=== PATIENT | female | born 1945 | race Caucasian/White ===

== ENCOUNTER 2017-12-26 09:47 | Inpatient (IN) | payer MEDICARE ==
[~2017-12-26] VITALS: Ht 172.7 cm; Wt 89.1 kg
[~2017-12-26 09:47] MED LIST: ALBU6.7H IH; ASPI-1197 PO; HYDR12.530 PO; LISI10TA7 PO; OMEP10SU2 PO
[2017-12-26 11:09] LABS: BASOPHILS % (AUTO) 0.5 % (0.0-5.0); HEMATOCRIT 32.6 % (36-48); MEAN CORPUSCULAR HGB CONC 33.7 g/dL (32.0-36.0); MEAN CORPUSCULAR VOLUME 80.3 fL (79-99); NEUTROPHILS % (AUTO) 66.5 % (40.0-77.0); PLATELET COUNT (AUTO) 283 K/uL (130-400); RED BLOOD CELL COUNT(AUTO) 4.06 MIL/uL (4.00-5.50); RED CELL DISTRIBUTION WIDTH 15.3 % (11.0-15.5); WHITE BLOOD COUNT (AUTO) 6.4 K/uL (4.8-10.8)
[2017-12-26 11:18] LABS: CARBON DIOXIDE 29 mmol/L (21-32); CHLORIDE 98 mmol/L (101-111); GLOMERULAR FILTR. RATE CALC 58 mL/min (>60); GLUCOSE,RANDOM 107 mg/dL (70-105); POTASSIUM 4.1 mmol/L (3.5-5.1); SODIUM SERUM 135 mmol/L (136-145); UREA NITROGEN, BLOOD 12 mg/dL (7-18)
[2017-12-26 11:27] LABS: INR 0.95 (0.85-1.15)
[2017-12-26] MEDS ORDERED: METHYLPREDNISOLONE SOD SUCC 125MG/2ML VIAL ONE (11:31)
[2017-12-26 11:32] LABS: ALANINE AMINOTRANSFERASE 17 U/L (12-78); ALBUMIN 3.8 g/dL (3.5-5.0); ASPARTATE AMINOTRANSFERASE 17 U/L (10-37); BILIRUBIN,TOTAL 0.4 mg/dL (0.2-1.0); CREATINE KINASE MB < 0.5 ng/mL (0.5-3.6); CREATINE KINASE, TOTAL 58 U/L (21-232); TOTAL PROTEIN, SERUM 7.9 g/dL (6.0-8.3)
[2017-12-26] MEDS ORDERED: IPRATROPIUM/ALBUTEROL SULFATE 3 ML SOLUTION IH ONE (11:42)
[2017-12-26 11:54] LABS: B-TYPE NATRIURETIC PEPTIDE 63 pg/mL (0-100)
[2017-12-26] MEDS ORDERED: LEVOFLOXACIN 500 MG/D5W 100 ML 100 ML ONE (13:33)
[2017-12-26] MEDS: IPRATROPIUM/ALBUTEROL SULFATE 3 ML SOLUTION IH SCH ×2 (18:34→22:45)
[2017-12-26 19:05] VITALS: BP 175/76
[2017-12-26] MEDS: METHYLPREDNISOLONE SOD SUCC 125MG/2ML VIAL IVP SCH (21:11)
[2017-12-26] MEDS ORDERED: MONT10TA21 PO (23:02)
[2017-12-26] MEDS ORDERED: ALBUHFA IH (23:09)
[2017-12-26] MEDS ORDERED: OMEP20TA2 PO (23:09)
[2017-12-26] MEDS ORDERED: METO25TA6 PO (23:09)
[2017-12-26] MEDS ORDERED: SIMV20TA6 PO (23:09)
[2017-12-26] MEDS ORDERED: LISI1TAB9 PO (23:09)
[2017-12-26] MEDS ORDERED: ASPI-1026 PO (23:10)
[2017-12-27 00:23] VITALS: BP 168/78
[2017-12-27] MEDS ORDERED: ACETAMINOPHEN 325 MG TAB PO PRN (02:30)
[2017-12-27] MEDS ORDERED: HYDRALAZINE HCL 20 MG/ML VIAL IV PRN (02:30)
[2017-12-27] MEDS ORDERED: ONDANSETRON HCL 4 MG/2 ML VIAL IVP PRN (02:30)
[2017-12-27] MEDS: IPRATROPIUM/ALBUTEROL SULFATE 3 ML SOLUTION IH SCH ×6 (02:40→22:34)
[2017-12-27 04:00] VITALS: BP 154/81
[2017-12-27] MEDS: METHYLPREDNISOLONE SOD SUCC 125MG/2ML VIAL IVP SCH ×3 (04:51→21:34)
[2017-12-27 08:04] VITALS: BP 139/67
[2017-12-27] MEDS: ENOXAPARIN SODIUM 30 MG/0.3 ML SQ SCH (09:00)
[2017-12-27] MEDS: LEVOFLOXACIN 500 MG/D5W 100 ML 100 ML IV SCH (11:15)
[2017-12-27 11:16] VITALS: BP 156/75
[2017-12-27 16:45] VITALS: BP 133/59
[2017-12-27] MEDS: BUDESONIDE 0.5 MG/2 ML INH IH SCH (19:37)
[2017-12-27 19:50] VITALS: BP 145/69
[2017-12-27] MEDS ORDERED: MONTELUKAST SODIUM 10 MG TAB PO SCH (21:00)
[2017-12-27] MEDS ORDERED: ATORVASTATIN CALCIUM 10 MG TABLET PO SCH (21:00)
[2017-12-28] VITALS: BP 150/72
[2017-12-28] MEDS: IPRATROPIUM/ALBUTEROL SULFATE 3 ML SOLUTION IH SCH ×3 (01:51→10:24)
[2017-12-28 04:00] VITALS: BP 154/64
[2017-12-28 04:53] LABS: HEMATOCRIT 26.5 % (36-48); MEAN CORPUSCULAR HEMOGLOBIN 26.7 pg (27.0-33.0); MEAN CORPUSCULAR HGB CONC 33.8 g/dL (32.0-36.0); MEAN CORPUSCULAR VOLUME 78.8 fL (79-99); PLATELET COUNT (AUTO) 275 K/uL (130-400); RED BLOOD CELL COUNT(AUTO) 3.36 MIL/uL (4.00-5.50); RED CELL DISTRIBUTION WIDTH 15.1 % (11.0-15.5); WHITE BLOOD COUNT (AUTO) 18.5 K/uL (4.8-10.8)
[2017-12-28 05:04] LABS: ALBUMIN 3.3 g/dL (3.5-5.0); BILIRUBIN,TOTAL 0.2 mg/dL (0.2-1.0); CREATININE 1.2 mg/dL (0.5-1.5); POTASSIUM 3.7 mmol/L (3.5-5.1); TOTAL PROTEIN, SERUM 6.9 g/dL (6.0-8.3)
[2017-12-28] MEDS: BUDESONIDE 0.5 MG/2 ML INH IH SCH (07:12)
[2017-12-28] MEDS ORDERED: PANTOPRAZOLE SODIUM 40 MG TABLET.DR PO SCH (07:30)
[2017-12-28 07:45] VITALS: BP 110/63
[2017-12-28 08:16] VITALS: BP 124/59
[2017-12-28] MEDS ORDERED: ASPIRIN 325 MG TABLET PO SCH (09:00)
[2017-12-28] MEDS: AMLODIPINE BESYLATE 5 MG TAB PO SCH ×3 (09:00→11:59)
[2017-12-28] MEDS ORDERED: LISINOPRIL 10 MG TABLET PO SCH (09:00)
[2017-12-28] MEDS ORDERED: HYDROCHLOROTHIAZIDE 25 MG TABLET PO SCH (09:00)
[2017-12-28] MEDS: METHYLPREDNISOLONE SOD SUCC 125MG/2ML VIAL IVP SCH (09:35)
[2017-12-28] MEDS: ENOXAPARIN SODIUM 30 MG/0.3 ML SQ SCH (09:36)
[2017-12-28] MEDS: LEVOFLOXACIN 500 MG/D5W 100 ML 100 ML IV SCH (11:57)
[2017-12-28 12:00] VITALS: BP 174/77
[2017-12-28 13:15] VITALS: BP 136/67
[2017-12-28] MEDS ORDERED: AMLO5TAB4 PO (14:04)
[2017-12-28] MEDS ORDERED: PRED20TA3 PO (14:04)
[2017-12-28] MEDS ORDERED: LEVO500T2 PO (14:04)
[2017-12-28] MEDS ORDERED: BUDE0.5A3 IH (14:05)
== END 2017-12-28 14:55 | disposition home or self-care (01) | DRG 189 ==
LOC: EDH 09:47 → EDHIP 12:15 → 4BH 18:46
PROVIDERS: ADMIT Family Medicine; ATTEND Family Medicine
DX: J96.00 Acute respiratory failure, unspecified whether with hypoxia or hypercapnia (principal); J44.1 Chronic obstructive pulmonary disease with (acute) exacerbation; I35.0 Nonrheumatic aortic (valve) stenosis; J45.901 Unspecified asthma with (acute) exacerbation; E66.9 Obesity, unspecified; E78.5 Hyperlipidemia, unspecified; I10 Essential (primary) hypertension; I25.10 Atherosclerotic heart disease of native coronary artery without angina pectoris; Z87.891 Personal history of nicotine dependence; Z90.710 Acquired absence of both cervix and uterus; Z95.1 Presence of aortocoronary bypass graft; Z95.3 Presence of xenogenic heart valve; Z68.29 Body mass index [BMI] 29.0-29.9, adult
CPT/HCPCS: 36415; 71046; 80053; 82550; 82553; 83880; 84484; 85025; 85027; 85610; 85730; 87633; 93005; 93306; 94640; 94664; J1650; J1956; J2930

== ENCOUNTER 2019-01-29 17:55 | Inpatient (IN) | payer MEDICARE ==
[~2019-01-29] VITALS: Ht 171.4 cm; Wt 93.9 kg
[~2019-01-29 17:55] MED LIST changes: -ALBU6.7H IH; +ALBUHFA IH; +AMLO5TAB4 PO; +ASPI-1026 PO; -ASPI-1197 PO; +BUDE0.5A3 IH; -HYDR12.530 PO; +LEVO500T2 PO; -LISI10TA7 PO; +LISI1TAB9 PO; +MONT10TA21 PO; -OMEP10SU2 PO; +OMEP20TA2 PO; +PRED20TA3 PO; +SIMV20TA6 PO
[2019-01-29 18:47] LABS: BASOPHILS % (AUTO) 0.6 % (0.0-5.0); EOSINOPHILS % (AUTO) 4.3 % (0.0-8.0); LYMPHOCYTES % (AUTO) 19.8 % (21.0-51.0); MEAN CORPUSCULAR HEMOGLOBIN 21.3 pg (27.0-33.0); MEAN CORPUSCULAR HGB CONC 31.1 g/dL (32.0-36.0); MEAN CORPUSCULAR VOLUME 68.7 fL (79-99); MONOCYTES % (AUTO) 9.1 % (3.0-13.0); NEUTROPHILS % (AUTO) 66.2 % (40.0-77.0); NUCLEATED RED BLOOD CELLS 0.1 % (0.0-0.19); PLATELET COUNT (AUTO) 300 K/uL (130-400); RED BLOOD CELL COUNT(AUTO) 2.51 MIL/uL (4.00-5.50); RED CELL DISTRIBUTION WIDTH 18.2 % (11.0-15.5); WHITE BLOOD COUNT (AUTO) 6.4 K/uL (4.8-10.8)
[2019-01-29 18:59] LABS: HEMATOCRIT 17.2 % (36-48)
[2019-01-29 19:05] LABS: INR 0.92 (0.85-1.15); PARTIAL THROMBOPLASTIN TIME 25.7 SEC (26.3-35.5); PROTHROMBIN TIME 9.7 SEC (9.6-11.6)
[2019-01-29] MEDS ORDERED: ONDANSETRON HCL 4 MG/2 ML VIAL IV PRN (19:15)
[2019-01-29] MEDS ORDERED: ACETAMINOPHEN 325 MG TAB PO PRN ×2 (19:15)
[2019-01-29 21:15] LABS: APPEARANCE,URINE Clear (CLEAR); BILIRUBIN,URINE Negative (NEGATIVE); COLOR,URINE Yellow (YELLOW); GLUCOSE, URINE (UA) Negative (NEGATIVE); KETONES,URINE Negative (NEGATIVE); LEUKOCYTE ESTERASE ,URINE Trace (NEGATIVE); NITRATE,URINE Negative (NEGATIVE); OCCULT BLOOD,URINE Negative (NEGATIVE); PROTEIN,URINE Negative (NEGATIVE); UROBILINOGEN,URINE 0.2 mg/dL (0.2-1.0)
[2019-01-29 21:59] LABS: BACTERIA,URINE Rare /HPF (None Seen); RBC,URINE 0-1 /HPF (0-1); SQUAMOUS EPITHELIAL CELL,UR None Seen /HPF (0-2)
[2019-01-30] VITALS (7 sets, daily range): BP systolic 156–187; BP diastolic 67–81
--- NOTE | 2019-01-30 00:15 | NUR ---
Received pt. from ER ,S/P transfused with 2 units of PRBC .Pt. is alert and oriented.
--- NOTE | 2019-01-30 00:30 | NUR ---
Placed call to [employer] Jay and clarify orders and he said to start pt. on Protonix drip and NS @150 ml/hr.Informed pt. is still pending HH.
[2019-01-30] MEDS: PANTOPRAZOLE SODIUM 80 MG in SODIUM CHLORIDE 0.9% 100 ML IV SCH ×3 (00:37→20:25)
[2019-01-30] MEDS: SODIUM CHLORIDE 0.9% 1000ML 1,000 ML IV SCH ×3 (00:55→21:10)
[2019-01-30 01:58] LABS: HEMATOCRIT 21.6 % (36-48)
--- NOTE | 2019-01-30 02:14 | NUR ---
COMFORT Thompson notified of HH 6.8/21.6 and received order to transfuse 1 unit of PRBC to infuse in 4 hrs.
[2019-01-30] MEDS ORDERED: SODIUM CHLORIDE 0.9% 250 ML IV ONE (03:29)
--- NOTE | 2019-01-30 07:45 | NUR ---
Pt. remained stable, pending to consult GI today.1 unit of PRBC pt. tolerating well and infusing well to left AC .Bedside report given to incoming NOD all questions answered.
[2019-01-30] MEDS ORDERED: LISI-617 PO (09:51)
[2019-01-30] MEDS ORDERED: METO25TA3 PO (09:51)
[2019-01-30 10:08] LABS: BASOPHILS % (AUTO) 0.5 % (0.0-5.0); EOSINOPHILS % (AUTO) 2.3 % (0.0-8.0); HEMATOCRIT 26.2 % (36-48); MEAN CORPUSCULAR HGB CONC 32.9 g/dL (32.0-36.0); MEAN CORPUSCULAR VOLUME 76.1 fL (79-99); MONOCYTES % (AUTO) 8.9 % (3.0-13.0); NEUTROPHILS % (AUTO) 75.3 % (40.0-77.0); PLATELET COUNT (AUTO) 206 K/uL (130-400); RED BLOOD CELL COUNT(AUTO) 3.45 MIL/uL (4.00-5.50); RED CELL DISTRIBUTION WIDTH 21.1 % (11.0-15.5)
[2019-01-30 10:30] LABS: % IRON SATURATION 36.5 % (22-44)
[2019-01-30] MEDS ORDERED: LEVOFLOXACIN 500 MG/D5W 100 ML 100 ML IV SCH (10:30)
[2019-01-30 11:00] LABS: ALBUMIN 3.2 g/dL (3.5-5.0); BILIRUBIN,TOTAL 0.7 mg/dL (0.2-1.0); CREATININE 1.1 mg/dL (0.5-1.5); POTASSIUM 4.3 mmol/L (3.5-5.1); TOTAL PROTEIN, SERUM 6.1 g/dL (6.0-8.3)
[2019-01-30 11:24] LABS: TROPONIN I 0.05 ng/mL (0.00-0.06)
--- NOTE | 2019-01-30 13:20 | NUR ---
DCP CM met with pt discussed dc plans. pt is independent prior to admission, lives at home with spouse, todd kimball. Denies any equipments/services. Pt feels safe to go back home, still drives, spouse able to assist with transportation and needs. Dc plan to home once stable. CM to cont to follow up. Addendum: 01/30/19 at 1321 by HENRY CHINCHILLA LVN CM Amended: Links added.
--- NOTE | 2019-01-30 16:39 | NUR ---
Nutrition Intervention: Nutrition Notification for anemia. Pt admitted for anemia, fatigue. Currently on clear liquid diet however states she is tolerating. Recommendations: Advance diet therapy to Heart healthy when medically feasible. Vitamin/mineral supplementation: folic acid, B12, iron. Addendum: 01/30/19 at [address] RD Amended: Links added.
--- NOTE | 2019-01-30 19:50 | NUR ---
ANTIBIOTIC Order to administer Levaquin; patient is allergic to levaquin. Prior to calling MD money order clerk patient stated she believes the report of UA is contaminated due to not a clean, sterile catch. Prior to ER visit, she had a rectal exam and believes she was not clean enough. States she will not take any antibiotics unless its done with an a in and out catheter. Called MD money order clerk; CIRO Giang returned page. Informed him of order for levaquin and patient's allergy. Obtained order for in and out straight cath for UA and UC, and to discontinue Levaquin. Will follow orders and continue to monitor patient.
--- NOTE | 2019-01-30 19:50 | NUR ---
FALL PRECAUTION Patient is a fall risk for fall; patient has an older model bed with no bed alarm enabled. Asked RE ETCHER to place a bed alarm pad under patient. Patient refused. Discussed and educated patient that she is a high risk for falls and for her safety, bed alarm is needed to be placed. Patient states she will call for assistance and thinks it is stupid for her to have it on. Apologized for the inconvenience but having the bed alarm pad will prevent falls and extended stays at the hospital. Patient states she understands and agrees for bed alarm.
--- NOTE | 2019-01-30 19:55 | NUR ---
REFUSED I/O STRAIGHT CATH Patient was informed of order for a recollection of UA and UC via in and out straight cath. Patient refuses for collection. Patient states she is tired and would rather wait for MD in the am since she was only admitted for blood transfusion. Respected patient's wishes. Also, patient requested for midnight vital signs not to be done; requesting for sleep not to be interrupted. Patient did agree to check blood pressure at 0400 vital signs. Will inform MD in am of refusal of recollection.
[2019-01-30] MEDS: SIMVASTATIN 20 MG TABLET PO SCH (21:08)
[2019-01-30] MEDS: METOPROLOL TARTRATE 25 MG TAB PO SCH (21:20)
[2019-01-31] MEDS ORDERED: LORAZEPAM 2 MG/ML 1 ML VIAL IVP PRN (03:45)
[2019-01-31] MEDS: CLONIDINE HCL 0.1 MG TABLET PO SCH ×3 (03:45→22:38)
[2019-01-31] MEDS: HYDRALAZINE HCL 20 MG/ML VIAL IV SCH ×2 (03:45→21:45)
[2019-01-31] MEDS ORDERED: CLONIDINE HCL 0.1 MG TABLET ONE (03:47)
[2019-01-31] MEDS ORDERED: HYDRALAZINE HCL 20 MG/ML VIAL ONE (03:47)
[2019-01-31] MEDS ORDERED: LORAZEPAM 2 MG/ML 1 ML VIAL ONE (03:48)
[2019-01-31] MEDS: IPRATROPIUM/ALBUTEROL SULFATE 3 ML SOLUTION IH PRN ×3 (03:48→18:36)
[2019-01-31 06:25] VITALS: BP 151/62
[2019-01-31 06:28] LABS: BASOPHILS % (AUTO) 0.7 % (0.0-5.0); EOSINOPHILS % (AUTO) 1.7 % (0.0-8.0); HEMATOCRIT 25.9 % (36-48); LYMPHOCYTES % (AUTO) 10.3 % (21.0-51.0); MEAN CORPUSCULAR HEMOGLOBIN 24.5 pg (27.0-33.0); MEAN CORPUSCULAR HGB CONC 32.1 g/dL (32.0-36.0); MEAN CORPUSCULAR VOLUME 76.2 fL (79-99); MONOCYTES % (AUTO) 9.2 % (3.0-13.0); NEUTROPHILS % (AUTO) 78.1 % (40.0-77.0); NUCLEATED RED BLOOD CELLS 0.1 % (0.0-0.19); PLATELET COUNT (AUTO) 191 K/uL (130-400); POTASSIUM 3.9 mmol/L (3.5-5.1); RED CELL DISTRIBUTION WIDTH 21.5 % (11.0-15.5); WHITE BLOOD COUNT (AUTO) 7.8 K/uL (4.8-10.8)
[2019-01-31] MEDS: CEFTRIAXONE SODIUM 1 GM IVP SCH (07:30)
[2019-01-31 08:40] VITALS: BP 146/65
[2019-01-31] MEDS: PANTOPRAZOLE SODIUM 80 MG in SODIUM CHLORIDE 0.9% 100 ML IV SCH (09:13)
[2019-01-31] MEDS: SODIUM CHLORIDE 0.9% 1000ML 1,000 ML IV SCH ×2 (09:13→20:32)
[2019-01-31] MEDS: LISINOPRIL 5 MG TABLET PO SCH (09:13)
[2019-01-31] MEDS: METOPROLOL TARTRATE 25 MG TAB PO SCH ×2 (09:13→20:30)
[2019-01-31 11:50] VITALS: BP 139/69
[2019-01-31] MEDS ORDERED: PEG 3350/NA SULF,BICARB,CL/KCL 4000 ML SOLN PO SCH (12:45)
[2019-01-31 15:33] VITALS: BP 169/70
[2019-01-31 19:00] VITALS: BP 164/58
[2019-01-31] MEDS: SIMVASTATIN 20 MG TABLET PO SCH (20:30)
[2019-01-31 23:00] VITALS: BP 163/71
[2019-02-01] VITALS (25 sets, daily range): BP systolic 111–166; BP diastolic 46–77
[2019-02-01] MEDS: HYDRALAZINE HCL 20 MG/ML VIAL IV SCH ×4 (04:19→21:26)
[2019-02-01] MEDS: IPRATROPIUM/ALBUTEROL SULFATE 3 ML SOLUTION IH PRN (05:25)
[2019-02-01] MEDS: METOPROLOL TARTRATE 25 MG TAB PO SCH ×2 (05:30→21:26)
[2019-02-01] MEDS: CLONIDINE HCL 0.1 MG TABLET PO SCH ×4 (05:33→21:27)
[2019-02-01] MEDS ORDERED: PROPOFOL 10 MG/ML 20ML VIAL IV ONE (05:53)
[2019-02-01] MEDS ORDERED: FENTANYL CITRATE PF 50 MCG/1 ML 2ML VIAL ONE (05:53)
[2019-02-01] MEDS ORDERED: LIDOCAINE HCL-MPF 2% 5ML VIAL ONE (05:53)
[2019-02-01] MEDS: CEFTRIAXONE SODIUM 1 GM IVP SCH ×2 (06:38→09:04)
[2019-02-01] MEDS: LISINOPRIL 5 MG TABLET PO SCH (09:03)
[2019-02-01 09:53] LABS: BASOPHILS % (AUTO) 0.4 % (0.0-5.0); EOSINOPHILS % (AUTO) 2.1 % (0.0-8.0); HEMATOCRIT 24.9 % (36-48); LYMPHOCYTES % (AUTO) 11.4 % (21.0-51.0); MEAN CORPUSCULAR HEMOGLOBIN 24.5 pg (27.0-33.0); MEAN CORPUSCULAR HGB CONC 31.8 g/dL (32.0-36.0); NEUTROPHILS % (AUTO) 73.1 % (40.0-77.0); PLATELET COUNT (AUTO) 184 K/uL (130-400); RED BLOOD CELL COUNT(AUTO) 3.24 MIL/uL (4.00-5.50); RED CELL DISTRIBUTION WIDTH 22.1 % (11.0-15.5); WHITE BLOOD COUNT (AUTO) 8.1 K/uL (4.8-10.8)
[2019-02-01 10:00] LABS: POTASSIUM 3.3 mmol/L (3.5-5.1)
--- NOTE | 2019-02-01 10:50 | NUR ---
COLONOSCOPY UNSUCCESSFUL SCHEDULED TODAY DUE TO PT NOT CLEAN, PT REFUSED REPEAT PREP WORK FOR COLONOSCOPY RESCHEDULED, D/C ORDER PLACED TO D/C PT IF OKAY BY GI, PT CHANGED HER MIND TO STAY FOR PROCEDURE AND READY TO REPEAT PREP WORK, PRIMARY DOCTOR INFORMED AND AWARE.
[2019-02-01] MEDS: MAGNESIUM CITRATE 296 ML SOLUTION PO SCH (16:02)
[2019-02-01] MEDS: SODIUM CHLORIDE 0.9% 1000ML 1,000 ML IV SCH (18:23)
--- NOTE | 2019-02-01 19:54 | NUR ---
Pt still not clear, previous order for half mag. citrate in place, paged for new orders, pending to return call back on #[phone] for possible fleet enema, primary nurse aware and updated, care endorsed.
[2019-02-01] MEDS ORDERED: MAGNESIUM CITRATE 296 ML SOLUTION PO SCH (20:00)
--- NOTE | 2019-02-01 20:12 | NUR ---
Rx called [facility] for Protonix drip, still pending to deliver medication, spoke with George.
--- NOTE | 2019-02-01 21:00 | NUR ---
ORDERS RESOURCE NURSE MADE AWARE OF PT'S PENDING PROCEDURE FOR COLONOSCOPY IN AM AND FAXED ORDERS.
[2019-02-01] MEDS: PANTOPRAZOLE SODIUM 80 MG in SODIUM CHLORIDE 0.9% 100 ML IV SCH (21:27)
[2019-02-01] MEDS: SIMVASTATIN 20 MG TABLET PO SCH (21:27)
--- NOTE | 2019-02-01 21:30 | NUR ---
MEDS DUE MEDS ADMINISTERED, TOLERATED WELL. ONE BM SEEN AND YELLOWISH IN COLOR,LOOSE WITH SLIGHT SEDIMENTS OF BROWN. ENCOURAGED TO TAKE MG CITRATE. WILL MONITOR STOOLS. BEDSIDE COMMODE PROVIDED BY PCP REQUESTED BY PT. RE-ITERATED TO BE NPO POST MN. PT VERBALIZES UNDERSTANDING.
[2019-02-02] VITALS (21 sets, daily range): BP systolic 117–167; BP diastolic 34–79
--- NOTE | 2019-02-02 02:00 | NUR ---
ROUNDS PT SLEPT AT INTERVALS WITH GOING TO THE [facility]. STOOLS ARE CLEARING UP, JUST VERY LITTLE SEDIMENTS NOTED. WILL CONTINUE TO MONITOR.
[2019-02-02] MEDS: HYDRALAZINE HCL 20 MG/ML VIAL IV SCH ×4 (03:52→21:47)
[2019-02-02] MEDS: CLONIDINE HCL 0.1 MG TABLET PO SCH ×4 (03:53→21:47)
--- NOTE | 2019-02-02 06:00 | NUR ---
SHOWER PT JUST HAD A SHOWER, TOLERATED ACTIVITY WELL. NO DISTRESS NOTED. BM IS VERY LIGHT YELLOWISH COLOR WITH LITTLE SEDIMENTS. KEPT NPO. FOR MORE CARE AND MANAGEMENT.
[2019-02-02 07:12] LABS: BASOPHILS % (AUTO) 0.3 % (0.0-5.0); EOSINOPHILS % (AUTO) 4.3 % (0.0-8.0); HEMATOCRIT 25.4 % (36-48); LYMPHOCYTES % (AUTO) 8.8 % (21.0-51.0); MEAN CORPUSCULAR HEMOGLOBIN 24.5 pg (27.0-33.0); MEAN CORPUSCULAR HGB CONC 31.8 g/dL (32.0-36.0); MEAN CORPUSCULAR VOLUME 76.8 fL (79-99); MONOCYTES % (AUTO) 10.1 % (3.0-13.0); NEUTROPHILS % (AUTO) 76.5 % (40.0-77.0); NUCLEATED RED BLOOD CELLS 0.1 % (0.0-0.19); PLATELET COUNT (AUTO) 178 K/uL (130-400); RED BLOOD CELL COUNT(AUTO) 3.31 MIL/uL (4.00-5.50); RED CELL DISTRIBUTION WIDTH 23.4 % (11.0-15.5); WHITE BLOOD COUNT (AUTO) 7.5 K/uL (4.8-10.8)
[2019-02-02 07:31] LABS: POTASSIUM 3.2 mmol/L (3.5-5.1)
[2019-02-02] MEDS ORDERED: PROPOFOL 10 MG/ML 20ML VIAL IV ONE (08:44)
[2019-02-02] MEDS ORDERED: POTASSIUM CHLORIDE 10MEQ/100ML 100 ML IV PRN (09:00)
[2019-02-02] MEDS ORDERED: LIDOCAINE HCL-MPF 1% 2ML VIAL IVP PRN (09:00)
[2019-02-02] MEDS ORDERED: POTASSIUM CHLORIDE 10% ELIXIR 20 MEQ/15 ML UDCUP PO PRN (09:00)
[2019-02-02] MEDS: LISINOPRIL 5 MG TABLET PO SCH (11:25)
[2019-02-02] MEDS: METOPROLOL TARTRATE 25 MG TAB PO SCH ×2 (11:25→20:24)
[2019-02-02] MEDS: PANTOPRAZOLE SODIUM 80 MG in SODIUM CHLORIDE 0.9% 100 ML IV SCH (12:12)
[2019-02-02] MEDS: SODIUM CHLORIDE 0.9% 1000ML 1,000 ML IV SCH (13:36)
[2019-02-02] MEDS: POTASSIUM CHLORIDE 20 MEQ ERTAB PO PRN ×3 (13:37→20:24)
[2019-02-02] MEDS: MAGNESIUM CITRATE 296 ML SOLUTION PO SCH (16:00)
[2019-02-02] MEDS ORDERED: FUROSEMIDE 10 MG/ML 4ML VIAL IV SCH (17:15)
[2019-02-02] MEDS: SIMVASTATIN 20 MG TABLET PO SCH (20:24)
--- NOTE | 2019-02-02 20:25 | NUR ---
MEDS DUE MEDS ADMINISTERED, TOLERATED WELL. KEPT RESTED AND COMFORTABLE. CALL LIGHT WITHIN REACH. ENCOURAGED TO REST AND SLEEP. INSTRUCTED TO BE NPO POST MN FOR BARIUM ENEMA STUDY IN AM. PT VERBALIZES UNDERSTANDING.
--- NOTE | 2019-02-02 21:30 | NUR ---
MEDS PT ALREADY GETTING READY TO SLEEP. DUE MEDS ADMINISTERED, TOLERATED WELL. CALL LIGHT WITHIN REACH. WILL MONITOR PT.
--- NOTE | 2019-02-03 02:00 | NUR ---
ROUNDS PT RESTING WELL, FAIRLY ASLEEP. NO DISTRESS NOTED. KEPT UNDISTURBED FOR NOW. WILL MONITOR PT.
[2019-02-03 04:06] VITALS: BP 148/56
[2019-02-03] MEDS: CLONIDINE HCL 0.1 MG TABLET PO SCH ×3 (04:11→12:38)
[2019-02-03] MEDS: HYDRALAZINE HCL 20 MG/ML VIAL IV SCH ×2 (04:12→11:52)
--- NOTE | 2019-02-03 04:53 | NUR ---
SAMMY PT REQUESTED TO HAVE A BREATHING TREATMENT BEFORE SHE WILL SHOWER SHE GETS SOB WITH EXERTION. CALLED RT SO TREATMENT WILL BE GIVEN. KEPT NPO FOR RADIOLOGY PROCEDURE. WILL MONITOR PT.
[2019-02-03] MEDS: IPRATROPIUM/ALBUTEROL SULFATE 3 ML SOLUTION IH PRN (05:00)
[2019-02-03 05:41] LABS: HEMATOCRIT 25.2 % (36-48); MEAN CORPUSCULAR HGB CONC 32.6 g/dL (32.0-36.0); MEAN CORPUSCULAR VOLUME 76.6 fL (79-99); PLATELET COUNT (AUTO) 185 K/uL (130-400); RED BLOOD CELL COUNT(AUTO) 3.29 MIL/uL (4.00-5.50); RED CELL DISTRIBUTION WIDTH 23.9 % (11.0-15.5); WHITE BLOOD COUNT (AUTO) 6.4 K/uL (4.8-10.8)
[2019-02-03 05:51] LABS: CREATININE 1.1 mg/dL (0.5-1.5); MAGNESIUM 1.9 mg/dL (1.80-2.40); POTASSIUM 3.7 mmol/L (3.5-5.1)
[2019-02-03 06:08] LABS: B-TYPE NATRIURETIC PEPTIDE 787 pg/mL (0-100)
[2019-02-03] MEDS: PANTOPRAZOLE SODIUM 80 MG in SODIUM CHLORIDE 0.9% 100 ML IV SCH (06:21)
[2019-02-03 08:00] VITALS: BP 150/49
[2019-02-03] MEDS: LISINOPRIL 5 MG TABLET PO SCH (11:49)
[2019-02-03] MEDS: METOPROLOL TARTRATE 25 MG TAB PO SCH (11:51)
[2019-02-03 12:00] VITALS: BP 184/70
--- NOTE | 2019-02-03 12:39 | NUR ---
Patient returned from barium enema. Dr. Ivy rounding with patient, patient states she wants to go home and wants a regular diet Dr. Ivy explained to patient to wait for Barium Enema results. Pt verbalized understanding.
[2019-02-03] MEDS ORDERED: FERR325T22 PO (12:43)
--- NOTE | 2019-02-03 13:05 | NUR ---
DR. MANUEL READ BARIUM ENEMA RESULTS. OK TO DISCHARGE AND F/U IN 1-2 WEEKS. HIGH FIBER DIET.
[2019-02-03 13:56] VITALS: BP 127/54
--- NOTE | 2019-02-03 14:24 | NUR ---
PATIENT DISCHARGED IN STABLE CONDITION. APPOINTMENT MADE FOR PCP DR. TELLES AND . DR. MANUEL. PATIENT INSTRUCTED ON HOW TO TAKE NEW PRESCRIPTION FERROUS SULFATE. INSTRUCTED WHEN TO COME BACK TO ER. PATIENT VERBALIZED UNDERSTANDING TO ALL TEACHING. IV 20G REMOVED FROM R AC. TOLERATED WELL.
== END 2019-02-03 14:30 | disposition home or self-care (01) | DRG 377 ==
LOC: EDH 17:55 → EDHIP 18:18 → 3BH 01-30 00:15
PROVIDERS: ADMIT Internal Medicine; ATTEND Internal Medicine
PROC: 30233N1 Transfusion of Nonautologous Red Blood Cells into Peripheral Vein, Percutaneous Approach (ICD-10-PCS; 2019-01-29)
PROC: 0DJD8ZZ Inspection of Lower Intestinal Tract, Via Natural or Artificial Opening Endoscopic (ICD-10-PCS; 2019-02-01)
PROC: 0DB98ZX Excision of Duodenum, Via Natural or Artificial Opening Endoscopic, Diagnostic (ICD-10-PCS; 2019-02-01)
PROC: 0DB78ZX Excision of Stomach, Pylorus, Via Natural or Artificial Opening Endoscopic, Diagnostic (ICD-10-PCS; 2019-02-01)
PROC: 0DB68ZX Excision of Stomach, Via Natural or Artificial Opening Endoscopic, Diagnostic (ICD-10-PCS; 2019-02-01)
PROC: 0DJD8ZZ Inspection of Lower Intestinal Tract, Via Natural or Artificial Opening Endoscopic (ICD-10-PCS; principal; 2019-02-02)
DX: K57.31 Diverticulosis of large intestine without perforation or abscess with bleeding (principal); I50.33 Acute on chronic diastolic (congestive) heart failure; N39.0 Urinary tract infection, site not specified; D50.9 Iron deficiency anemia, unspecified; I35.0 Nonrheumatic aortic (valve) stenosis; R19.5 Other fecal abnormalities; K29.70 Gastritis, unspecified, without bleeding; D64.9 Anemia, unspecified; E78.5 Hyperlipidemia, unspecified; I11.0 Hypertensive heart disease with heart failure; I25.10 Atherosclerotic heart disease of native coronary artery without angina pectoris; J44.9 Chronic obstructive pulmonary disease, unspecified; Z53.8 Procedure and treatment not carried out for other reasons; Z95.3 Presence of xenogenic heart valve; Z79.82 Long term (current) use of aspirin; Z95.1 Presence of aortocoronary bypass graft; Z90.711 Acquired absence of uterus with remaining cervical stump; Z88.1 Allergy status to other antibiotic agents; Z87.891 Personal history of nicotine dependence; Z83.3 Family history of diabetes mellitus; Z82.5 Family history of asthma and other chronic lower respiratory diseases; Z82.49 Family history of ischemic heart disease and other diseases of the circulatory system; Z82.3 Family history of stroke; Z82.0 Family history of epilepsy and other diseases of the nervous system
CPT/HCPCS: 36415; 36430; 43239; 45378; 71045; 74270; 80048; 80053; 81001; 82270; 82550; 82948; 83010; 83540; 83550; 83735; 83874; 83880; 84484; 85014; 85018; 85025; 85027; 85610; 85730; 86850; 86900; 86901; 86922; 87046; 87088; 93005; 94640; 94664; A4218; C9113; G0378; J0360; J0696; J1940; J2060; J2704; J3010; J3490; J7030; P9016

== ENCOUNTER → 2019-09-16 | Outpatient (CLI) | payer MEDICARE ==
[~2019-09-16] MED LIST changes: -AMLO5TAB4 PO; +FERR325T22 PO; -LEVO500T2 PO; +LISI-617 PO; -LISI1TAB9 PO; +METO25TA3 PO; -PRED20TA3 PO; +SIMV-43 PO; -SIMV20TA6 PO
== END | disposition home or self-care (01) ==
LOC: RAH 08:28
PROVIDERS: ATTEND Internal Medicine
DX: S46.002A Unspecified injury of muscle(s) and tendon(s) of the rotator cuff of left shoulder, initial encounter (principal); M75.102 Unspecified rotator cuff tear or rupture of left shoulder, not specified as traumatic; M65.9 Synovitis and tenosynovitis, unspecified; M19.012 Primary osteoarthritis, left shoulder; M25.812 Other specified joint disorders, left shoulder; X58.XXXA Exposure to other specified factors, initial encounter; Y93.89 Activity, other specified; Y92.89 Other specified places as the place of occurrence of the external cause; Y99.8 Other external cause status
CPT/HCPCS: 73221

== ENCOUNTER → 2019-10-27 | Outpatient (CLI) | payer MEDICARE | END | disposition home or self-care (01) | LOC: SHCH 07:54 | PROVIDERS: ATTEND Internal Medicine Cardiovascular Disease | DX: I08.1 Rheumatic disorders of both mitral and tricuspid valves (principal) | CPT/HCPCS: 93306 ==

== ENCOUNTER → 2021-10-04 | Outpatient (CLI) | payer MEDICARE ==
[~2021-10-04] MED LIST changes: -LISI-617 PO; +LISI5TAB21 PO
== END | disposition home or self-care (01) ==
LOC: SHCH 12:47
PROVIDERS: ATTEND Internal Medicine Cardiovascular Disease
DX: I34.8 Other nonrheumatic mitral valve disorders (principal); J44.9 Chronic obstructive pulmonary disease, unspecified; N18.9 Chronic kidney disease, unspecified; I10 Essential (primary) hypertension; E78.5 Hyperlipidemia, unspecified; Z95.2 Presence of prosthetic heart valve
CPT/HCPCS: 93306; 93356

== ENCOUNTER → 2021-11-08 | Outpatient (CLI) | payer MEDICARE ==
[~2021-11-08] VITALS: Ht 172.7 cm; Wt 91.2 kg
[2021-11-08] MEDS: REGADENOSON 0.4 MG/5 ML PF SYG IVP SCH (13:04)
== END | disposition home or self-care (01) ==
LOC: SHCH 08:20
PROVIDERS: ATTEND Internal Medicine Cardiovascular Disease
DX: R07.89 Other chest pain (principal); Z95.1 Presence of aortocoronary bypass graft
CPT/HCPCS: 78452; 93017; 96374; A9500 ×2; J2785

== ENCOUNTER → 2022-01-12 | Outpatient (CLI) | payer MEDICARE | END | disposition home or self-care (01) | LOC: RAH 10:56 | PROVIDERS: ATTEND Internal Medicine | DX: S52.135A Nondisplaced fracture of neck of left radius, initial encounter for closed fracture (principal); W19.XXXA Unspecified fall, initial encounter; Y93.89 Activity, other specified; Y92.89 Other specified places as the place of occurrence of the external cause; Y99.8 Other external cause status | CPT/HCPCS: 73080; 73090 ==

== ENCOUNTER → 2023-08-29 | Outpatient (CLI) | payer MEDICARE ==
[~2023-08-29] MED LIST changes: +MONT-47 PO; -MONT10TA21 PO
== END | disposition home or self-care (01) ==
LOC: SHCH 09:50
PROVIDERS: ATTEND Internal Medicine Cardiovascular Disease
DX: I35.0 Nonrheumatic aortic (valve) stenosis (principal); I10 Essential (primary) hypertension; E78.5 Hyperlipidemia, unspecified
CPT/HCPCS: 93306

== ENCOUNTER → 2023-09-25 | Outpatient (CLI) | payer MEDICARE | END | disposition home or self-care (01) | LOC: RAH 10:22 | PROVIDERS: ATTEND Internal Medicine | DX: M47.816 Spondylosis without myelopathy or radiculopathy, lumbar region (principal); M47.812 Spondylosis without myelopathy or radiculopathy, cervical region; M54.50 Low back pain, unspecified | CPT/HCPCS: 72040; 72100 ==

== ENCOUNTER → 2023-10-24 | Outpatient (CLI) | payer MEDICARE | END | disposition home or self-care (01) | LOC: RAH 12:39 | PROVIDERS: ATTEND Internal Medicine | DX: M47.816 Spondylosis without myelopathy or radiculopathy, lumbar region (principal); G89.29 Other chronic pain; M54.50 Low back pain, unspecified; M48.02 Spinal stenosis, cervical region | CPT/HCPCS: 72141; 72148 ==

== ENCOUNTER → 2023-11-01 | Outpatient (CLI) | payer MEDICARE | END | disposition home or self-care (01) | LOC: RAH 09:47 | PROVIDERS: ATTEND Internal Medicine | DX: Z12.31 Encounter for screening mammogram for malignant neoplasm of breast (principal) | CPT/HCPCS: 77067 ==

== ENCOUNTER → 2024-06-19 | Outpatient (CLI) | payer MEDICARE | END | disposition home or self-care (01) | LOC: RAH 11:06 | DX: Z01.818 Encounter for other preprocedural examination (principal); M25.552 Pain in left hip | CPT/HCPCS: 71046; 73502 ==

== ENCOUNTER → 2024-08-28 | Outpatient (CLI) | payer MEDICARE | END | disposition home or self-care (01) | LOC: RAH 09:22 | DX: M54.2 Cervicalgia (principal) | CPT/HCPCS: 72040 ==